=== PATIENT | female | born 1985 | race Caucasian/White ===

== ENCOUNTER 2017-07-25 00:27 | Emergency (ER) | payer OTHER ==
[2017-07-25 00:59] VITALS: BP 133/95; PULSE 86; TEMP 97.6; BMI 26.5
--- NOTE | 2017-07-25 01:00 | PDOC ---
History of Present Illness - General Chief Complaint: Psychiatric Stated Complaint: NUMBNESS IN LEFT ARM Time Seen by Provider: 07/25/17 00:59 History Source: Patient Exam Limitations: No Limitations - History of Present Illness Initial Comments: 07/25/17 03:09 Ms David is an otherwise healthy 32 yo F who presents to the ER with a complaint of neck pain, chest pain, arm pain Pt states that she has noticed a funny sensation of her left neck This has been constant for the past 3-4 days Several hours prior to presentation, the patient reports left arm tingling and pain No shortness of breath No palpitations No fevers, chills, cough No recent travel PMH: anxiety PSH: denies Meds: denies ALL: NKDA Social: denies drug use, alcohol use, tobacco use Has a child GENERAL/CONSTITUTIONAL: No: fever, chills, weakness, loss of appetite. HEAD, EYES, EARS, NOSE AND THROAT: No: change in vision, ear pain, discharge, sore throat, throat swelling. CARDIOVASCULAR: No: chest pain, lightheadedness, palpitations, syncope RESPIRATORY: No: cough, shortness of breath, wheezing, hemoptysis, stridor. GASTROINTESTINAL: No: nausea, vomiting, diarrhea, abdominal cramping, rectal bleeding, constipation. GENITOURINARY: No: dysuria, hematuria, frequency, urgency, flank pain. MUSCULOSKELETAL: Yes: left arm pain No: back pain, neck pain, joint pain SKIN: No: lesions, pallor, rash or easy bruising. NEUROLOGIC: No: headache, vertigo, paresthesias, weakness Physical Exam: GENERAL: The patient is in no acute distress. HEAD: Normal with no signs of trauma. EYES: PERRLA, EOMI, sclera anicteric, conjunctiva clear. ENT: Moist mucous membranes. NECK: Normal range of motion, supple LUNGS: Breath sounds equal, clear to auscultation bilaterally. No wheezes, and no crackles. HEART:Regular rate and rhythm, normal S1 and S2 ABDOMEN: Soft, nontender, normoactive bowel sounds. No guarding, no rebound. EXTREMITIES: Normal range of motion, no edema. NEUROLOGICAL: Cranial nerves II through XII grossly intact. Normal speech. No focal neurological deficits. MUSCULOSKELETAL: Back non-tender to palpation SKIN: Warm, Dry, no rash Past History - Past Medical History Allergies/Adverse Reactions: Allergies Allergy/AdvReac Type Severity Reaction Status Date / Time No Known Allergies Allergy Verified 07/25/17 00:57 Home Medications: Ambulatory Orders Hydroxyzine Pamoate [Vistaril] 100 mg PO HS #14 capsule 07/08/14 Asthma: No Cancer: No Cardiac Disorders: No Diabetes: No HTN: No Seizures: No Thyroid Disease: No - Immunization History Immunization Up to Date: Yes - Suicide/Smoking/Psychosocial Hx Smoking History: Never smoked Have you smoked in the past 12 months: No Information on smoking cessation initiated: No Hx Alcohol Use: No Drug/Substance Use Hx: No Substance Use Type: None Hx Substance Use Treatment: No *Physical Exam - Vital Signs Last Vital Signs Temp Pulse Resp BP Pulse Ox 97.6 F 86 20 133/95 100 07/25/17 00:27 07/25/17 00:27 07/25/17 00:27 07/25/17 00:27 07/25/17 00:27 Medical Decision Making - Medical Decision Making 07/25/17 03:06 Labs were not drawn on this patient EKG not done Pt at this time refusing to stay for work up She would like to go home because she has to get to her son She states she feels a bit better 07/25/17 03:23 *DC/Admit/Observation/Transfer Diagnosis at time of Disposition: Chest discomfort - Discharge Dispostion Disposition: HOME Condition at time of disposition: Stable Decision to Admit order: No - Referrals Referrals: Mabel Buenrostro [Primary Care Provider] - - Patient Instructions Printed Discharge Instructions: DI for Atypical Chest Pain, DI for Anxiety -- Adult Additional Instructions: Thank you for coming in to the ER today Please be sure to follow up with your primary care physician within 2 days Please return to the ER for any new symptoms, any other concerns or complaints - Post Discharge Activity Forms/Work/School Notes: Back to Work
== END 2017-07-25 03:24 | disposition home or self-care (01) ==
LOC: JER 00:27
DX: R07.89 Other chest pain (principal)
CPT/HCPCS: 99281-25

== ENCOUNTER 2024-04-13 07:40 | Day surgery (SDC) | payer OTHER ==
[2024-04-12 09:51] VITALS: BMI 28.0
[2024-04-13 10:54] VITALS: TEMP 97.6
[2024-04-13 11:01] VITALS: RESP 18
[2024-04-13 11:22] VITALS: BP 106/65; PULSE 65
== END 2024-04-13 11:23 | disposition home or self-care (01) ==
LOC: JASU-ENDO 07:40
PROVIDERS: ATTEND Internal Medicine Gastroenterology
PROC: 0DB78ZX Excision of Stomach, Pylorus, Via Natural or Artificial Opening Endoscopic, Diagnostic (ICD-10-PCS; 2024-04-13)
PROC: 0DB68ZX Excision of Stomach, Via Natural or Artificial Opening Endoscopic, Diagnostic (ICD-10-PCS; principal; 2024-04-13 10:00)
DX: K29.50 Unspecified chronic gastritis without bleeding (principal); K31.7 Polyp of stomach and duodenum
CPT/HCPCS: 81025; 88305-TC; 88342-TC